=== PATIENT | female | born 1985 | race African-American/Black ===

== ENCOUNTER 2016-11-26 08:41 | Emergency (ER) | payer MEDICARE ==
[~2016-11-26] VITALS: Ht 157.5 cm; Wt 100.0 kg
[2016-11-26 08:43] VITALS: BP 178/112; PULSE 86; RESP 18; TEMP 98.6; O2SAT 100
[2016-11-26] MEDS ORDERED: MEDR4PAK PO (09:38)
--- NOTE | 2016-11-26 09:38 | PD ---
HPI Chief Complaint: Injury Time Seen by Provider: 09:02 Travel History International Travel<30 days: No Contact w/Intl Traveler<30days: No Traveled to known affect area: No History of Present Illness HPI 30-year-old female with history of chronic kidney disease, hypertension, gout presents emergency department for evaluation of left ankle and left great toe pain 1 week. She reports this pain is similar to previous gouty flares. Reports her last flare was treated with steroids and pain medication. She denies fever or chills. She denies injury to the ankle. She denies calf pain or swelling. The pain is constant, worse with movement and weightbearing, slightly relieved with rest. Pain is unrelieved by OTC Tylenol. Pain severity 7/10. PFSH Past Medical History Narrative Medical Significant for CKD, hypertension, gout, legally blind ?: Not LMP: 10/2016 Social History Tobacco Use: No Allergies-Medications (Allergen,Severity, Reaction): Coded Allergies: apple (Verified Allergy, Severe, RASH, 11/26/16) hydromorphone (Verified Allergy, Severe, FAINTING, 11/26/16) pineapple (Verified Allergy, Severe, RASH, 11/26/16) Reported Meds & Prescriptions Reported Meds & Active Scripts Active Ruso (Hydrocodone-Acetaminophen) 5-325 mg Tab 1 Tab PO Q6H PRN Medrol Dosepak (Methylprednisolone) 4 Mg Dspk 4 Mg PO DIRECTED Per Pharmacist direction Review of Systems Except as stated in HPI: all other systems reviewed are Neg General / Constitutional: No: Fever Physical Exam Narrative GENERAL: Well-nourished, well-developed patient. SKIN: Focused skin assessment warm/dry. HEAD: Normocephalic. EYES: No scleral icterus. No injection or drainage. Patient legally blind NECK: Supple, trachea midline. No JVD or lymphadenopathy. CARDIOVASCULAR: Regular rate and rhythm without murmurs, gallops, or rubs. RESPIRATORY: Breath sounds equal bilaterally. No accessory muscle use. GASTROINTESTINAL: Abdomen soft, non-tender, nondistended. MUSCULOSKELETAL: No cyanosis, or edema. Left lower extremity: Notable tenderness to the great toe and anterior ankle. The foot is mildly swollen and warm to touch. 2+ distal pulses. No deformity. Brisk cap refill BACK: Nontender without obvious deformity. No CVA tenderness. Data Data Last Documented VS Vital Signs Date Time Temp Pulse Resp B/P (MAP) Pulse Ox O2 Delivery O2 Flow Rate FiO2 11/26/16 08:43 98.6 86 18 178/112 (134) 100 MDM Medical Decision Making Medical Screen Exam Complete: Yes Emergency Medical Condition: Yes Differential Diagnosis Gouty arthritis, ankle sprain, foot pain Narrative Course 30-year-old female with recent diagnosis of gout presents emergency department for evaluation of left great toe and ankle pain times one week. Patient denies fever or chills. She reports pain is similar to previous gout attack. On exam patient has notable acute tenderness to palpation of the great toe and anterior aspect of the ankle. She denies injury. She is 2+ distal pulses. Extremities slightly warm. patient reports she has taken norco/lortab int he past without side effects. Patient be treated with steroids and pain medication. Advised to follow gout diet and follow up with PCP. Diagnosis Primary Impression: Gout Qualified Codes: M10.9 - Gout, unspecified Referrals: Primary Care Physician Additional Instructions: Take medications as prescribed. Follow gout friendly diet. Follow-up with her primary care Scripts Hydrocodone-Acetaminophen (Ruso) 5-325 mg Tab 1 TAB PO Q6H Y for PAIN, #10 TAB 0 Refills Prov: Iraj Miranda MD 11/26/16 Methylprednisolone Dosepak (Medrol Dosepak) 4 Mg Dspk 4 MG PO DIRECTED, #1 DSPK 0 Refills Per Pharmacist direction Prov: Shelly Cutler 11/26/16 Disposition: 01 DISCHARGE HOME Condition: Stable Shelly Cutler Nov 26, 2016 09:38
[2016-11-26] MEDS ORDERED: NORC5TAB PO (09:39)
== END 2016-11-26 10:27 | disposition home or self-care (01) ==
LOC: NEPD 08:41
DX: M10.9 Gout, unspecified (principal); N18.9 Chronic kidney disease, unspecified; I12.9 Hypertensive chronic kidney disease with stage 1 through stage 4 chronic kidney disease, or unspecified chronic kidney disease; Z87.39 Personal history of other diseases of the musculoskeletal system and connective tissue
CPT/HCPCS: 99284